=== PATIENT | male | born 1985 | race Hispanic/Latino ===

== ENCOUNTER 2017-09-22 13:05 | Outpatient (CLI) | payer OTHER ==
--- NOTE | 2017-09-22 15:09 | ULT ---
THYROID ULTRASOUND: Date: 09/22/17 COMPARISON: 06/12/15. HISTORY: Thyroid goiter. TECHNIQUE: Multiplanar Simmons scale sonographic imaging of the thyroid gland obtained. FINDINGS: The thyroid isthmus measures 5.0 mm. Right lobe measures 4.9 x 2.1 x 2.0 cm. Left lobe measures 5.3 x 1.8 x 2.1 cm. There is a heterogeneously hypoechoic solid nodule in the posterior aspect of the mid right lobe avtar uring 1.3 x 1.1 x 1.2 cm. This does not appear significantly changed when compared to the 06/12/15 [facility] at which time this nodule was estimated in the 1.3 x 1.1 x 1.0 cm range. The inferior and posteri or aspect of the right lobe of the thyroid gland demonstrates heterogeneity and decreased echogenicit y with no discrete measureable mass identified. There is a cystic nodule with a punctate internal echogenic focus within the inferior aspect of the r ight lobe measuring 7.0 x 5.0 x 7.0 mm, unchanged. There is a questionable hypo to isoechoic nodule in the posterior aspect of the left lobe measuring 1 .3 x 0.6 x 1.3 cm. IMPRESSION: Stable mildly complex cystic nodule within the left lobe and stable posterior hypoechoic solid nodule within the right lobe. In addition, there are two questionable new findings, which includes an ill-d efined area of decreased echogenicity within the inferior aspect of the right lobe and a questionable hypo to isoechoic solid nodule in the posterior aspect of the left lobe. Given these questionable ne w findings, a follow-up examination is advised in 6 months. POS: PITO
== END 2017-09-22 13:06 | disposition home or self-care (01) ==
LOC: SCSULT 13:05
PROVIDERS: ATTEND Family Medicine
DX: E04.2 Nontoxic multinodular goiter (principal)
CPT/HCPCS: 76536

== ENCOUNTER 2018-03-01 20:30 | Outpatient (CLI) | payer OTHER | END 2018-03-01 20:31 | disposition home or self-care (01) | LOC: SLEEPLAB 20:30 | PROVIDERS: ATTEND Family Medicine | DX: G47.33 Obstructive sleep apnea (adult) (pediatric) (principal); R53.83 Other fatigue; F41.9 Anxiety disorder, unspecified; E66.9 Obesity, unspecified; F32.9 Major depressive disorder, single episode, unspecified; Z68.31 Body mass index [BMI] 31.0-31.9, adult | CPT/HCPCS: 95810 ==